=== PATIENT | female | born 1955 | race Caucasian/White ===

== ENCOUNTER 2017-07-04 07:43 | Emergency (ER) | payer BC ==
[~2017-07-04] VITALS: Ht 165.1 cm; Wt 117.3 kg
[~2017-07-04 07:43] MED LIST: ASPIR 8181 M1 PO; ASPIR-LOW81 MG PO; CIPRO500 MG PO; GLUCOPHAGE500 MG PO; JANUMET 50/11 TABLET PO; JANUVIA100 MG PO; LIPITOR40 MG PO; LOTREL 5/101 CAPSULE PO; MAG-OXIDE400 MG PO; MAGNESIUM OXID200 MG PO; VISINE TIRED EY15 ML BOTH EYES; VITAMIN D2000 UNI1 PO; XARELTO20 MG PO; ZESTORETIC 10-1 EAC1 PO
[2017-07-04 08:09] LABS: EOSINOPHIL (%) 1.8 % (0-5); EOSINOPHIL COUNT 0.1 K/uL (0-0.3); HEMATOCRIT 43.4 % (36.0-46.0); IMMATURE GRANULOCYTE (%) 0.3 % (0.0-0.7); INSTRUMENT ABS NEUTROPHIL CT 4.6 K/uL; LYMPHOCYTE COUNT 1.2 K/uL (1.0-2.8); MCH 31.3 PG (29.0-34.0); MCHC 32.3 G/DL (30.0-36.0); MCV 97.1 FL (83-99); MEAN PLAT.VOLUME 10.7 uM^3 (9.5-12.4); MONOCYTE (%) 8.9 % (3-12); MONOCYTE COUNT 0.6 K/uL (0-0.8); NEUTROPHIL (%) 70.7 % (45-76); NEUTROPHIL COUNT 4.6 K/uL (1.8-6.4); PLATELET COUNT 226 K/uL (156-360); RBC DIS.WIDTH-CV 13.2 % (11.8-14.6); RBC DIS.WIDTH-SD 47.4 % (39-53); RED BLOOD COUNT 4.47 M/uL (3.80-5.20); WHITE BLOOD COUNT 6.5 K/uL (4.1-10.2)
[2017-07-04 08:17] LABS: CHLORIDE 107 mEq/L (99-109); POTASSIUM 4.2 mEq/L (3.7-5.4); SODIUM 140 mEq/L (136-147)
[2017-07-04 08:19] LABS: GLUCOSE 130 mg/dL (70-99)
[2017-07-04 08:20] LABS: ANION GAP 8 MEQ/L (2-14)
[2017-07-04 08:23] LABS: GFR ESTIMATE (CALCULATED) > 59 mL/min/; UREA NITROGEN (BUN) 13 mg/dL (9-23)
[2017-07-04 08:33] VITALS: BP 147/67
[2017-07-04 09:40] LABS: ADD MIUA? YES; BILIRUBIN NEGATIVE; BLOOD NEGATIVE; COLOR YELLOW ((YELLOW)); GLUCOSE (STRIP) NEGATIVE; KETONES NEGATIVE; LEUKOCYTES NEGATIVE; NITRITE NEGATIVE; PROTEIN (STRIP) 30; SPECIFIC GRAVITY 1.024 (1.000-1.030); UROBILINOGEN 0.2 MG/DL (0.2-1.0)
[2017-07-04 09:54] LABS: BACTERIA RARE /HPF; EPITHELIAL CELLS 2+ /HPF; HYALINE CASTS 0-5 /LPF; MUCUS TRACE /LPF; RED BLOOD CELLS 0-5 /HPF (0-5); UCUL ADDED? NO; WHITE BLOOD CELLS 0-5 /HPF (0-5)
[2017-07-04] MEDS ORDERED: VALIUM5 MG PO (10:29)
== END 2017-07-04 11:19 | disposition home or self-care (01) ==
LOC: EME 07:43
PROVIDERS: Emergency Medicine
DX: M62.838 Other muscle spasm (principal); R10.9 Unspecified abdominal pain; R11.0 Nausea; Z87.442 Personal history of urinary calculi; I10 Essential (primary) hypertension; E78.5 Hyperlipidemia, unspecified; Z90.710 Acquired absence of both cervix and uterus; Z87.891 Personal history of nicotine dependence
CPT/HCPCS: 74176; 80048; 81003; 85025; 99281; 99285; J1885; J2405; J7030